=== PATIENT | female | born 1960 | race Two or more races ===

== ENCOUNTER 2017-04-15 08:04 | Inpatient (IN) | payer OTHER ==
[~2017-04-15] VITALS: Ht 160 cm; Wt 81.6 kg
[2017-04-15] VITALS (14 sets, daily range): BP systolic 106–131; BP diastolic 53–86
[~2017-04-15 08:04] MED LIST: Pantoprazole Inj IVP ONE; Vancomycin 1gm/D5W 275ml IVPB ONE
[2017-04-15] MEDS ORDERED: ZYRTEC10 MG ORAL (09:01)
[2017-04-15] MEDS ORDERED: SPIRONOLACTONE1 EACH ORAL (09:01)
[2017-04-15] MEDS ORDERED: PROGESTERONE200 MG PO (09:01)
[2017-04-15] MEDS ORDERED: ZOLPIDEM TARTRA10 MG ORAL (09:01)
[2017-04-15] MEDS ORDERED: CIPROFLOXACIN500 M2 ORAL (09:01)
[2017-04-15] MEDS ORDERED: Vancomycin 1gm inj IVPB ONE (09:20)
[2017-04-15] MEDS ORDERED: Thrombin 5000 units TOPIC ONE (09:39)
[2017-04-15] MEDS ORDERED: Gelfoam Absorbable 1gm powder pkt TOPIC ONE (09:40)
[2017-04-15] MEDS ORDERED: Bupivacaine w/Epi 0.5% 30ml Vial INJ ONE (09:40)
[2017-04-15] MEDS ORDERED: Thrombin 5000 units spray kit TOPIC ONE (09:40)
[2017-04-15] MEDS ORDERED: Bacitracin 50000 Units Vial ONE ×2 (09:40→12:00)
[2017-04-15] MEDS ORDERED: LR 1000ml 1,000 ML IVLG SCH (09:50)
--- NOTE | 2017-04-15 09:52 | Anethesia Preoperative Eval ---
Anesthesia Pre-op PMH/ROS General Date of Evaluation: Apr 15, 2017 Time of Evaluation: 10:09 Anesthesiologist: Yaima ASA Score: ASA 2 Mallampati Score Class I : Soft palate, uvula, fauces, pillars visible Class II: Soft palate, uvula, fauces visible Class III: Soft palate, base of uvula visible Class IV: Only hard plate visible Mallampati Classification: Class II Surgeon: Radha Diagnosis: Neck Pain Surgical Procedure: ACDF C5-6, C6-7 Anesthesia History: none Family History: no anesthesia problems Allergies: Coded Allergies: No Known Allergies (Unverified , 04/14/17) Medications: see eMAR Past Medical History Cardiovascular: Reports: HTN Anesthesia Pre-op Phys. Exam Physician Exam Last Vital Signs Date Time Temp Pulse Resp B/P Pulse Ox O2 Delivery O2 Flow Rate FiO2 04/15/17 08:39 59 17 131/86 97 Room Air Constitutional: NAD Neurologic: CN 2-12 intact Cardiovascular: RRR Respiratory: CTA Gastrointestinal: S/NT/ND Airway Exam Mallampati Score: Class II MO: full ROM: limited Teeth: intact Anesthesia Pre-op A/P Risk Assessment & Plan Assessment: ASA 2 Plan: GA, BIS, Glidescope Status Change Before Surgery: No Pre-Antibiotics Dru Gram Vancomycin, 80 mg Gentamicin Given Within 1 Hr of Incision: Yes Time Given: 10:16 Deion Erwin MD Apr 15, 2017 09:52
[2017-04-15] MEDS ORDERED: Metoclopramide 10mg/2ml Inj IVP PRN (10:00)
[2017-04-15] MEDS ORDERED: Propofol 10mg/ml 100ml btl IV ONE (10:00)
[2017-04-15] MEDS ORDERED: fentaNYL 250mcg/5ml ONE (10:00)
[2017-04-15] MEDS ORDERED: Ketorolac 60mg Inj IV PRN (10:00)
[2017-04-15] MEDS ORDERED: NS Irrig 1000ml ONE (10:00)
[2017-04-15] MEDS ORDERED: Norco 5mg/325mg tab ORAL PRN (10:00)
[2017-04-15] MEDS ORDERED: Lidocaine 1% Plain 30 ml INJ ONE (10:00)
[2017-04-15] MEDS ORDERED: Dexamethasone 4mg/ml vial ONE (10:00)
[2017-04-15] MEDS ORDERED: LORazepam Inj 2mg/ml 1ml IV PRN (10:00)
[2017-04-15] MEDS ORDERED: Neostigmine 1mg/ml 10ml Inj ONE (10:00)
[2017-04-15] MEDS ORDERED: fentaNYL 100 mcg/2 mL IV PRN (10:00)
[2017-04-15] MEDS ORDERED: fentaNYL 100 mcg/2 mL IV ONE (10:00)
[2017-04-15] MEDS ORDERED: LR 1000ml ONE (10:00)
[2017-04-15] MEDS ORDERED: Sterile Water Irrig 1000ml IRRIG ONE (10:00)
[2017-04-15] MEDS ORDERED: Glycopyrrolate 0.2mg/ml 1ml Vial ONE (10:00)
[2017-04-15] MEDS ORDERED: Norco 7.5mg/325mg tab ORAL PRN ×2 (10:00→15:30)
[2017-04-15] MEDS ORDERED: Midazolam 2mg/2ml Inj IVP PRN (10:00)
[2017-04-15] MEDS ORDERED: Atropine Inj 1mg/10ml Syr IV PRN (10:00)
[2017-04-15] MEDS ORDERED: Hydromorphone 0.5mg/0.5ml inj IVP PRN (10:00)
[2017-04-15] MEDS ORDERED: Zemuron 50mg/5ml Inj IV ONE (10:00)
[2017-04-15] MEDS ORDERED: DiphenhydrAMINE 50mg/ml Inj IVP PRN (10:00)
[2017-04-15] MEDS ORDERED: Midazolam 2mg/2ml Inj ONE (10:00)
[2017-04-15] MEDS ORDERED: Meperidine 25mg/0.5ml Inj (FOR RIGORS ONLY) IV PRN (10:00)
[2017-04-15] MEDS ORDERED: Lidocaine 1% MPF 10mg/ml 5ml ONE (10:00)
[2017-04-15] MEDS ORDERED: Oxycodone/Acetaminophen 5-325 ORAL PRN (10:00)
[2017-04-15] MEDS ORDERED: Ketorolac 30mg Inj IV PRN (10:00)
--- NOTE | 2017-04-15 10:14 | Pre-Procedure Note/Attestation ---
Pre-Procedure Note/Attestation Complete Prior to Procedure Planned Procedure: bilateral Procedure Narrative: Anterior cervical discectomy and fusion at C5-6 and C6-7 with interbody PEEK graft and plate arthrodesis, use of autograft, allograft, and iliac crest bone marrow aspiration. Attestation I attest that I discussed the nature of the procedure; its benefits; risks and complications; and alternatives (and the risks and benefits of such alternatives ), prior to the procedure, with the patient (or the patient's legal teleservices representative). I attest that, if there was a reasonable possibility of needing a blood transfusion, the patient (or the patient's legal teleservices representative) was given the [place] [employer] standardized written summary, pursuant to the [place] Blood Safety Act ([place] Health and Safety Code # 1645, as amended). I attest that I re-evaluated the patient just prior to the surgery and that there has been no change in the patient's H&P, except as documented below: JARAD ELIZABETH Apr 15, 2017 10:14
[2017-04-15] MEDS ORDERED: Acetaminophen (Non formulary) 100 ML IV ONE (10:15)
--- NOTE | 2017-04-15 10:59 | Immediate Post-Op Evaluation ---
Immediate Post-Op Evalulation Immediate Post-Op Evalulation Procedure: ACDF C5-6, C6-7 Date of Evaluation: Apr 15, 2017 Time of Evaluation: 13:55 IV Fluids: 1000 LR Blood Products: 0 Estimated Blood Loss: 50 Urinary Output: 0 Blood Pressure Systolic: 121 Blood Pressure Diastolic: 71 Pulse Rate: 69 Respiratory Rate: 16 O2 Sat by Pulse Oximetry: 100 Temperature (Fahrenheit): 97.2 Pain Score (1-10): 2 Nausea: No Vomiting: No Complications 0 Patient Status: awake, reacts, patent, extubated, none Hydration Status: adequate Dru gram Vancomycin, 80 mg Gentamicin Given Within 1 Hr of Incision: Yes Time Given: 10:16 Deion Erwin MD Apr 15, 2017 10:59
--- NOTE | 2017-04-15 13:52 | Brief Operative Note ---
Immediate Post Operative Note Operative Note Chief Complaint: Neck pain and with left sided radiculopathy Pre-op Diagnosis: Intractable neck pain and left -sided radiculopathy Herniated disc C5-6 and C6-7 lack of improvement from conservative care and interventional pain injection Procedure: 1. Right-sided approach anterior cervical disectomy at C5-6 and C6-7 2. Insertion of biomechanical device PEEK cage (Medacta) 6 x 12 x 14 mm at C5-6 and C6-7 levels 3. Bilateral foraminotomies C5-6 and C6-7 4. Anterior arthrodesis C5 to C7 using 30 mm [place] plate and 6 14 mm screws 5. Left iliac crest bone marrow aspiration 6. [place] of local bone for grafting 7. Intraop Fluoroscopy for localization and instrumentation of spine 8. Microdissection 9. Plastic surgical closure of cervical wound 6 cm 10. Modifier 22 for the difficulty of approach 11. Intra-op neuromonitoring SSEPs and dermatomal evoked potentials. Post-op Diagnosis: same as pre-op Findings: consistent w/pre-op dx studies Surgeon: Nano Garcia MD Freight Brakeman: Jamel Lerner MD Anesthesiologist: Christian HERNANDEZ Anesthesia: general Specimen: yes - disc Complications: none Fluids: 800 Estimated Blood Loss: minimal Drains: none Implant(s) used?: Yes - Medacta PEEK cages, [place] plate, and [place] NANO GARCIA Apr 15, 2017 13:52
--- NOTE | 2017-04-15 14:07 | General Progress Note ---
Progress Note Progress Note Neurosurgery S/ Comfortable. O/ VS: Last 24 Hour Vital Signs Date Time Temp Pulse Resp B/P Pulse Ox O2 Delivery O2 Flow Rate FiO2 04/15/17 14:00 63 15 108/53 99 Nasal Cannula 3.0 04/15/17 13:55 60 15 106/56 100 Simple Mask 6.0 04/15/17 13:50 64 18 109/60 100 Simple Mask 6.0 04/15/17 13:44 97.2 70 14 121/71 99 Simple Mask 6.0 04/15/17 13:43 69 16 100 04/15/17 08:39 59 17 131/86 97 Room Air Alert and interactive Moves all extremities well dressing is dry normal sensation doing well Admit JARAD ELIZABETH Apr 15, 2017 14:07
--- NOTE | 2017-04-15 15:21 | Diagnostic Imaging Report ---
Indication: Neck Pain Findings: Fluoroscopic views of the cervical spine were obtained. 3 level the scans cervical fusion C5-7 noted with disc replacement. Impression: Intraoperative imaging
[2017-04-15] MEDS: Norco 7.5mg/325mg tab ORAL PRN ×3 (15:25→21:44)
[2017-04-15] MEDS ORDERED: Cyclobenzaprine 10mg Tab ORAL PRN (15:30)
[2017-04-15] MEDS ORDERED: HYDROmorphone 1mg/ml Carpuject IVP PRN (15:30)
[2017-04-15] MEDS ORDERED: Milk of Magnesia 30ml Ud ORAL PRN (15:30)
[2017-04-15] MEDS ORDERED: NS w/KCl 20mEq 1,000 ML IV SCH (16:00)
[2017-04-15] MEDS: Docusate 100mg cap ORAL SCH (17:42)
[2017-04-15] MEDS: Pericolace tab ORAL SCH (17:42)
[2017-04-15] MEDS: Vancomycin 1 GM in D5W 275 ML IVPB SCH (21:43)
[2017-04-16 00:39] VITALS: BP 120/61
[2017-04-16] MEDS: Norco 7.5mg/325mg tab ORAL PRN (01:40)
[2017-04-16 07:23] LABS: ANION GAP 11 (5-15); CALCIUM 8.4 mg/dL (8.6-10.2); CARBON DIOXIDE 24 mEQ/L (20-30); CHLORIDE 95 mEQ/L (98-107); CREATININE 0.7 mg/dL (0.5-0.9); GLOMERULAR FILTRATION RATE > 60 mL/min (>60); HEMOLYSIS 5; POTASSIUM 4.6 mEQ/L (3.4-4.9); SODIUM 130 mEQ/L (135-145)
--- NOTE | 2017-04-16 07:24 | 48 Hour Post Anesthesia Eval ---
Post Anesthesia Evaluation Procedure: ACDF C5-6, C6-7 Date of Evaluation: Apr 16, 2017 Time of Evaluation: 07:23 Blood Pressure Systolic: 120 0: 61 Pulse Rate: 62 Respiratory Rate: 20 Temperature (Fahrenheit): 97.9 O2 Sat by Pulse Oximetry: 97 Airway: patent Nausea: No Vomiting: No Pain Intensity: 2 Hydration Status: adequate Cardiopulmonary Status: Stable Mental Status/LOC: patient returned to baseline Follow-up Care/Observations: 0 Post-Anesthesia Complications: 0 Follow-up care needed: ready to discharge Deion Erwin MD Apr 16, 2017 07:24
[2017-04-16 08:00] VITALS: BP 115/60
--- NOTE | 2017-04-16 08:56 | General Progress Note ---
Progress Note Progress Note Neurosurgery POD #1 S/ minimal pain or discomfort. No swallowing difficulties. Ambulated. Neck feels better. Posterior neck pain improved. No arm, pain O/ VS: Last 24 Hour Vital Signs Date Time Temp Pulse Resp B/P Pulse Ox O2 Delivery O2 Flow Rate FiO2 04/16/17 08:00 98.1 64 18 115/60 96 Room Air 04/16/17 07:24 62 20 97 04/16/17 00:39 97.9 62 18 120/61 97 Room Air 04/15/17 20:40 97.7 73 17 124/60 97 Room Air 04/15/17 19:28 97.3 04/15/17 17:10 97.3 71 22 111/57 97 Nasal Cannula 04/15/17 16:27 97.0 65 21 107/56 98 Nasal Cannula 04/15/17 14:59 97.6 67 19 107/56 94 Nasal Cannula 04/15/17 14:50 97.6 67 19 107/56 94 Nasal Cannula 2.0 04/15/17 14:40 97.6 04/15/17 14:28 97.6 60 15 107/56 98 Nasal Cannula 3.0 04/15/17 14:20 62 13 109/57 98 Nasal Cannula 3.0 04/15/17 14:17 63 14 114/61 100 Nasal Cannula 3.0 04/15/17 14:10 64 16 107/60 100 Nasal Cannula 3.0 04/15/17 14:00 63 15 108/53 99 Nasal Cannula 3.0 04/15/17 13:55 60 15 106/56 100 Simple Mask 6.0 04/15/17 13:50 64 18 109/60 100 Simple Mask 6.0 04/15/17 13:44 97.2 70 14 121/71 99 Simple Mask 6.0 04/15/17 13:43 69 16 100 Alert and oriented x 4 Incisions C/D/I Motor 5/5 sensation improved L UE Labs: Laboratory Tests Test 04/16/17 05:35 Sodium Level 130 mEQ/L (135-145) L Potassium Level 4.6 mEQ/L (3.4-4.9) Chloride Level 95 mEQ/L (98-107) L Carbon Dioxide Level 24 mEQ/L (20-30) Anion Gap 11 (5-15) Blood Urea Nitrogen 15 mg/dL (7-23) Creatinine 0.7 mg/dL (0.5-0.9) Estimat Glomerular Filtration Rate > 60 mL/min (>60) Glucose Level 114 mg/dL (74-106) H Calcium Level 8.4 mg/dL (8.6-10.2) L doing well D/c planning D/c instructions d/w pt and nursing staff JARAD ELIZABETH Apr 16, 2017 08:55
[2017-04-16] MEDS: Docusate 100mg cap ORAL SCH (08:58)
[2017-04-16] MEDS: Pericolace tab ORAL SCH (08:58)
[2017-04-16] MEDS ORDERED: Spironolactone 25mg tab ORAL SCH (09:00)
[2017-04-16] MEDS ORDERED: COLACE100 MG ORAL (09:36)
[2017-04-16] MEDS ORDERED: NORCO 5-325 TA1 EACH ORAL (09:36)
[2017-04-16] MEDS ORDERED: Ciprofloxacin 500mg tab ORAL ONE (10:00)
[2017-04-16] MEDS: Vancomycin 1 GM in D5W 275 ML IVPB SCH (10:00)
--- NOTE | 2017-04-16 23:15 | Discharge Summary ---
DATE OF ADMISSION: 04/15/2017 DATE OF DISCHARGE: 04/16/2017 DISCHARGE DIAGNOSIS: Status post anterior cervical diskectomy, fusion, and stabilization at C5-C6 and C6-C7 level with plate arthrodesis. HISTORY OF PRESENT ILLNESS: Refer to the chart for detailed History and Physical. HOSPITAL COURSE: The patient was admitted on 04/15/2017 and underwent an uneventful anterior cervical diskectomy, fusion, and stabilization. She has done very well postoperatively. She is ambulating. Her pain is controlled. She has worked with physical therapy. Discharge instructions and wound care were discussed with nursing staff and patient in detail. DISCHARGE DISPOSITION: Home. DIET: Regular. ACTIVITY LEVEL: The patient was asked not to do any bending, lifting, or twisting of the upper back and neck area. She is to maintain cervical collar for two weeks at all times then thereafter when out of bed and ambulating. DIET: Soft mechanical for one week. FOLLOWUP: Followup with Dr. Garcia in two weeks. CONSULTATIONS: Physical therapy. DISCHARGE INSTRUCTIONS: 1. Keep wound dry for four days. 2. In case of fever greater than 101 degrees, chills, or drainage from the incision, the patient is to call Dr. Garcia or go to the nearest ER. 3. Maintain cervical collar. 4. Activity level discussed with the patient in detail. 5. Wound care were also discussed as well. COMPLICATIONS: None. Nano Garcia M.D. DR: ALEAH JOB#: [id number] CC:
== END 2017-04-16 10:33 | disposition home or self-care (01) | DRG 473 ==
LOC: SDSOVERFLO 08:04 → 3E 14:32
DX: M50.122 Cervical disc disorder at C5-C6 level with radiculopathy (principal); G47.00 Insomnia, unspecified
CPT/HCPCS: 36415; 72040; 76001; 80048; 86850; 86900; 86901; 87081; 94003; 94150; C9399; J2180; J2250; J2405; J2710